=== PATIENT | male | born 1975 | race Caucasian/White ===

== ENCOUNTER → 2018-03-31 | Outpatient (REF) | payer OTHER ==
[2018-03-31 13:42] LABS: INR 0.95; PARTIAL THROMBOPLASTIN TIME 25.2 SECONDS (25.4-37.6); PROTHROMBIN TIME 12.7 SECONDS (12.1-14.4)
[2018-03-31 13:45] LABS: AMORPHOUS SEDIMENT SMALL (NEGATIVE); APPEARANCE, URINE TURBID (CLEAR); BACTERIA, URINE AUTO 1+ (NEGATIVE); BILIRUBIN, URINE AUTO NEGATIVE (NEGATIVE); BLOOD, URINE BLOOD 1+ (NEGATIVE); COLOR, URINE YELLOW (YELLOW); GLUCOSE, URINE (UA) AUTO NEGATIVE (NEGATIVE); KETONE, URINE AUTO NEGATIVE (NEGATIVE); LEUKOCYTE ESTERASE, URINE AUTO NEGATIVE (NEGATIVE); MUCUS, URINE SMALL (NEGATIVE); NITRITE, URINE AUTO NEGATIVE (NEGATIVE); PROTEIN, URINE AUTO NEGATIVE (NEGATIVE); RBC, URINE AUTO 3 /HPF (0-3); SPECIFIC GRAVITY URINE AUTO 1.019 (1.002-1.035); SQUAMOUS EPITHELIAL CELL UR AU 0 /HPF (0-6); UROBILINOGEN, URINE AUTO 0.2 mg/dL (0.0-2.0); WBC, URINE AUTO 5 /HPF (0-3)
== END ==
LOC: M LAB REF 12:51
DX: Z01.818 Encounter for other preprocedural examination (principal)

== ENCOUNTER 2020-12-01 01:02 | Emergency (ER) | payer OTHER ==
[~2020-12-01] VITALS: Ht 188 cm; Wt 113.6 kg
[2020-12-01] MEDS ORDERED: MORPHINE 2 MG/ML 1ML VIAL (J2270) IV PRN (01:40)
[2020-12-01] MEDS ORDERED: ONDANSETRON 4MG/2ML VIAL IV ONE (01:40)
[2020-12-01 03:54] VITALS: BP 146/97
--- NOTE | 2020-12-01 08:31 | REP ---
INDICATION: 1 MTP PAIN, HX OF DROP FOOT. COMPARISON: None. TECHNIQUE: Four views FINDINGS: The joint spaces are symmetric and relatively well maintained. There is no evidence of acute fracture or destructive osseous lesion. The examination was obtained at 1:40 a.m., however, it has been brought to my attention for the 1st time for interpretation today at this time. There is a mild hallux valgus deformity with asymmetric joint space narrowing of the 1st metatarsophalangeal joint. There is no acute fracture IMPRESSION: Chronic changes as described above. <Electronically signed by Ruben Santoro > 12/01/20 [id number]
== END 2020-12-01 03:55 | disposition home or self-care (01) ==
LOC: M ED 01:02
DX: M21.611 Bunion of right foot (principal); M20.11 Hallux valgus (acquired), right foot; M21.371 Foot drop, right foot; M54.10 Radiculopathy, site unspecified

== ENCOUNTER → 2023-07-20 | Outpatient (REF) | LOC: M RAD 10:57 | PROVIDERS: ATTEND Internal Medicine | DX: M19.071 Primary osteoarthritis, right ankle and foot (principal); M20.11 Hallux valgus (acquired), right foot; M96.1 Postlaminectomy syndrome, not elsewhere classified; M13.80 Other specified arthritis, unspecified site; M43.16 Spondylolisthesis, lumbar region; M79.671 Pain in right foot; M54.50 Low back pain, unspecified ==